=== PATIENT | female | born 1995 | race Caucasian/White ===

== ENCOUNTER 2017-08-07 11:03 | Inpatient (IN) ==
[2017-08-07 11:50] LABS: Amphetamine Screen,Urine Negative ng/mL (Cutoff=1000); Barbiturate Screen,Urine Negative ng/mL (Cutoff=200); Benzodiazepines Screen,Urine Negative ng/mL (Cutoff=200); Cannabinoid Screen,Urine Negative ng/mL (Cutoff = 50); Cocaine Screen,Urine Negative ng/mL (Cutoff= 300); Opiate Screen,Urine Negative ng/mL (Cutoff=300); Phencyclidine Screen,Urine Negative ng/mL (Cutoff=25)
[2017-08-07] MEDS ORDERED: Famotidine 20 MG/2 ML VIAL IVP PRN (11:54)
[2017-08-07] MEDS ORDERED: Ondansetron 4 MG/2 ML VIAL IVP PRN (11:54)
[2017-08-07] MEDS ORDERED: Metoclopramide 10 MG/2 ML VIAL IVP PRN (11:54)
[2017-08-07] MEDS ORDERED: Naloxone 0.4 MG/ML INJ IVP PRN (11:54)
--- NOTE | 2017-08-07 11:58 | OB/GYN History & Physical ---
Date of Encounter: 08/07/17 Time of Encounter: 11:52 Assessment and Plan (1) Pre-eclampsia, severe, antepartum Current visit: Yes Status: Acute Admit to labor and delivery for induction of labor secondary to Pre-eclampsia with severe features due to severe range BP's since arrival. Labetalol and hydralazine to control BP. Magnesium Sulfate infusion Seizure precautions Nubain prn for pain, epidural as desired TOCO, EFM Cervical medina, pitocin if needed for induction Anticipate (2) 38 weeks gestation of Current visit: No Status: Acute at 38 2/7 weeks gestation here for PIH eval; BP 162/104, 173/104 Pt gets care with Midwives in [place], was seeing Dr. Pereira for HTN. Has been on labetalol 100mg BID. History of Present Illness Chief complaint: PIH eval HPI: Ms. Aguilar is a 21 year old female at 38 2/7 weeks gestation who presents to labor and delivery for PIH evaluation. She has received the majority of her care through Midwives in [place]. She was evaluated at [address] Pereira for concerns with hypertension. She was evaluated again on 07/31 with SBP of 148. She has been on labetalol 100mg BID. Today she was evaluated and found to have BP of 148/94. She was sent over for PIH evaluation. She has some mild nausea. She reports positive movement. She is not feeling any contractions currently. Denies QUINN, visual changes, dizziness, cp, sob, abd pain , dysuria, numbness/tingling of extremities, weakness, vaginal loss of fluid, vaginal bleeding. Blood Type O+ GBS - Hep B non-reactive Rubella immune Past Med Surg Social Fam HX - Past Medical History Medical history: hypertension Psychiatric history: no psych history - Past Surgical History Surgical History: other - Social History Smoking Status: Never smoker Smokeless Tobacco Status: No Alcohol use: none Drug use: none Obstetrical History - Pregnancies : 1 Para: 0 Term: 0 : 0 Ab's: 0 Livin Medications and Allergies 3 Allergy/AdvReac Type Severity Reaction Status Date / Time No Known Allergies Allergy Verified 03/17/15 11:48 Review of System OB All systems PM: reviewed and no additional remarkable complaints except as stated Exam - Constitutional Constitutional: well developed, well nourished, no acute distress, average body habitus - HEENT HEENT: EOMI, PERRL, Normocephaly, Mucus Membranes Moist - Neck Neck exam: normal inspection, supple, trachea midline - Lungs Respiratory exam: CTAB - Cardiovascular Cardiovascular exam: +S1, +S2 - Abdomen Abdomen: Present: bowel sounds normal, gravid, non tender - Extremities Extremities exam: normal capillary refill, normal inspection, warm, radial pulses palpable and symmetrical Deep Tendon Reflex Grade: 2+ Normal - Cervix Dilation: 1 (1.5) Effacement: 70 Station: -2 - Uterus Uterus exam: Present: normal size, normal contour Results Result Diagrams: 08/07/17 12:23 08/07/17 12:23 All other labs normal. - VTE Reasons for not Prescribing Prophylaxis: Treatment not Indicated - Low risk for VTE
[2017-08-07] MEDS ORDERED: Ringers Solution, Lactated 1,000 ML IVC SCH (12:00)
[2017-08-07] MEDS ORDERED: *HR* Labetalol 20 MG/4 ML SYRINGE IVP ONE ×2 (12:27→15:42)
[2017-08-07 13:03] LABS: Basophils % 0.3 %; Eosinophils # 0.2 K/mcL (0.0-0.6); Hematocrit 39.9 % (35.3-44.9); Hemoglobin 13.4 g/dL (11.5-15.4); Mean Corpuscular HGB Conc 33.6 g/dL (31.6-35.5); Mean Corpuscular Hemoglobin 29.1 pg (28.0-33.3); Mean Corpuscular Volume 86.7 fL (83.0-100.0); Mean Platelet Volume 12.8 fL (9.4-12.4); Monocytes # 0.8 K/mcL (0.0-1.3); Monocytes % 8.4 %; Neutrophils # 6.3 K/mcL (1.6-8.9); Platelet Count 204 K/mcL (140-400); Red Cell Distribution Width 12.8 % (11.5-14.5); Segmented Neutrophils % 67.3 %
[2017-08-07 13:11] LABS: Alanine Aminotransferase 12 Units/L (7-52); Aspartate Amino Transferase 16 Units/L (13-39); BUN/Creatinine Ratio 13 (6-26); Blood Urea Nitrogen 10 mg/dL (6-20); Lactate Dehydrogenase 159 Units/L (140-271); Uric Acid 6.4 mg/dL (2.3-7.6); eGFR For African Americans > 60 (> 60); eGFR For Non-African Americans > 60 (> 60)
[2017-08-07] MEDS ORDERED: *HR* Labetalol 20 MG/4 ML SYRINGE IVP STA (13:14)
[2017-08-07 13:31] LABS: Protein/Creatinine Ratio,Urine 0.29 mg/mg (0.00-0.20)
[2017-08-07] MEDS: Magnesium Sulfate 20 gm/500mL 20 GM/500 ML IV.SOLN IVC SCH ×2 (13:41→23:28)
--- NOTE | 2017-08-07 14:30 | OB Labor Progress Note ---
Date of Encounter: 08/07/17 Time of Encounter: 14:10 Labor Progress Note - Subjective Subjective: Pt denies complaints - Cervix Cervix: 1.5/70/-2 - Heart Tones Heart Tones: Category I - Interventions Interventions: Hummel placed in cervix using sterile technique. Balloon inflated with 60ml sterile water. Pt tolerated well. - Plan Plan: Continue to monitor FHT and BP. Continue magnesium infusion.
[2017-08-07] MEDS ORDERED: Calcium Gluconate 1,000 MG/10 ML VIAL IVPB ONE (15:27)
--- NOTE | 2017-08-07 15:48 | Event Note ---
Date of Encounter: 08/07/17 Time of Encounter: 15:45 BP now again severe range despite labetalol [address]. Per Dr[address] Bhagat and ACOG committee opinion [id number] will now give 80mg Labetalol and then if still severe will give hydralazine. Pt is on magnesium sulfate 2 grams per hour.
[2017-08-07] MEDS ORDERED: Oxytocin 20 units/ LR 1000 mL 20 UNIT/1,000 ML BAG IVC SCH (18:30)
--- NOTE | 2017-08-07 21:51 | OB Labor Progress Note ---
Date of Encounter: 08/07/17 Time of Encounter: 21:50 Labor Progress Note - Subjective Subjective: Pt denies any complaints. - Vital Signs Vital Signs: BP mild range - Heart Tones Heart Tones: Category I, moderate variability, no declerations. - Wilbur Wilbur: irregular - Plan Plan: COntinue to monitor and titrate pitocin. Maximum of 8mu's/min on pitocin until medina out. Continue magnesium and careful BP monitoring.
--- NOTE | 2017-08-07 23:47 | OB Labor Progress Note ---
Date of Encounter: 08/07/17 Time of Encounter: 23:45 Labor Progress Note - Subjective Subjective: Pt denies complaints at this time. - Cervix Cervix: 6/80/-1 - Heart Tones Heart Tones: periods of minimal variability - [place]: 1.5-2 minutes - Interventions Interventions: AROM for large amount clear fluid. IUPC and FSE placed. - Plan Plan: Continue to monitor. Anticipate .
--- NOTE | 2017-08-08 00:50 | OB Labor Progress Note ---
Date of Encounter: 08/08/17 Time of Encounter: 00:48 Labor Progress Note - Subjective Subjective: Called to evaluate FHR tracing. - Heart Tones Heart Tones: FHR baseline 118 with variability currently at 10 beats per minute (moderate). Prior had minimal variability that was likely due to sleep cycle and/or effect of the Magnesium Sulfate. Her blood pressure at this time is under good control. - [place]: q 2 minutes without decel presently - Interventions Interventions: none - Plan Plan: Continue pitocin induction for superimposed pre-elampsia with severe features.
--- NOTE | 2017-08-08 04:18 | OB Labor Progress Note ---
Date of Encounter: 08/08/17 Time of Encounter: 04:17 Labor Progress Note - Vital Signs Vital Signs: 127/69 - Heart Tones Heart Tones: baseline 117 with moderate variability. Still having periods of minimal variability without decels. - [place]: q 2-3 minutes; pitocin currently at 2 munits/min - Interventions Interventions: Continue pitocin induction. Periods of decreased variability are likely due to the Magnesium and/or sleep cycle
[2017-08-08] MEDS: *HR* Nalbuphine 20 MG/ML AMPUL IVP PRN ×2 (07:21→15:53)
--- NOTE | 2017-08-08 10:03 | Anesthesia Evaluation PreOp ---
Date of Encounter: 08/08/17 Time of Encounter: 09:54 - Past History Planned Operation: vaginal del, G1 pre-eclampsia medina induction Cardiac History: HTN (HTN started wk 29 been tx with labetolol BID. BP 170/100' s started on MAG infusion, with labetolol and hydralzine) Pulmonary History: Denies Any Significant HX CONTAMINATED LAND CONSULTANT History: Denies Any Significant HX Other Medical History: Other (obesity) Anesthesia History: Past Anesthesia (no previous anesthesia, denies any family HX.) Alcohol Use: none Drug use: none Medications and Allergies Labetalol [Trandate] 100 mg PO BID 08/07/17 [History] 3 Allergy/AdvReac Type Severity Reaction Status Date / Time No Known Allergies Allergy Verified 08/07/17 20:28 Anesthesia Results - Labs 08/07/17 12:23 08/07/17 12:23 Anesthesia Exam - HEENT Pupil (Motor): Pupils equal Mallampati: II Teeth: Normal Oral Opening: Greater than 3 - CONTAMINATED LAND CONSULTANT LOC: Oriented CONTAMINATED LAND CONSULTANT Motor: Normal RUE, Normal LUE, Normal RLE, Normal LLE, Normal Face CONTAMINATED LAND CONSULTANT Sensory: Normal: RUE, LUE, RLE, LLE, Face - Cardiac Rhythm: Regular Murmur: None - Pulmonary Breath Sounds: bilateral Clear Respiratory Effort: Symmetrical Anesthesia Assess/Plan ASA Score: 2 Modified Apple Scale for Level of Consciousness: Cooperative, oriented, and tranquil Anesthetic Plan: General, Regional (patient does not desire any regional at this time.) Monitoring Plan: Standard Monitors Recovery Plan: PACU
[2017-08-08] MEDS: Magnesium Sulfate 20 gm/500mL 20 GM/500 ML IV.SOLN IVC SCH ×2 (10:04→19:52)
--- NOTE | 2017-08-08 19:24 | OB/GYN Procedure Note ---
Delivery - Delivery Date: 08/08/17 Provider: Herve Khanna Intrapartum events: none Delivery induction: oxytocin, medina Delivery monitor: internal FHT, internal uterine Anesthesia: local Estimated Blood Loss: 300 - Infant (s) A Infant Delivery Date: 08/08/17 Infant Delivery Time: 18:32 Presentation: vertex Position: ALEX Route of delivery: Gender: Male Viability: Viable Pounds: 5 Ounces: 7 at 1 minute: 8 at 5 mins: 9 Specimens collected: cord blood Placenta: spontaneous Cord: 3 umbilical vessels - Repair Episiotomy: none Laceration Description: Labial - Complications Delivery complications: none - Disposition Mom disposition: stable in LDR Tranquillity disposition: stable in LDR - Comments Comments: Pt s/p of liveborn male infant 5lbs 7oz with apgars 8 at 1 min and 9 at 5 min. EBL 300 cc. Spontaneous delivery of normal placenta with 3 VC. Bilateral labial superficial tears repaired with 3-0 vicryl under local anesthesia.
[2017-08-08] MEDS ORDERED: Measles/Mumps/Rubella Vacc 0.5 ML VIAL SQ PRN (19:55)
[2017-08-08] MEDS ORDERED: Acetaminophen 325 MG TABLET PO PRN (19:55)
[2017-08-08] MEDS ORDERED: Rho Immune Globulin 1,500 UNIT SYRINGE IM PRN (19:55)
[2017-08-08] MEDS ORDERED: Oxytocin 20 units/ LR 1000 mL 20 UNIT/1,000 ML BAG IVC SCH (19:55)
[2017-08-08] MEDS ORDERED: Ibuprofen 600 MG TABLET PO PRN (19:55)
[2017-08-09 04:42] LABS: Basophils % 0.2 %; Eosinophils % 0.1 %; Hematocrit 35.3 % (35.3-44.9); Hemoglobin 12.1 g/dL (11.5-15.4); Immature Granulocytes % 0.8 % (0-4); Lymphocytes # 1.6 K/mcL (0.6-4.6); Lymphocytes % 7.8 %; Mean Corpuscular HGB Conc 34.3 g/dL (31.6-35.5); Mean Corpuscular Hemoglobin 29.5 pg (28.0-33.3); Mean Corpuscular Volume 86.1 fL (83.0-100.0); Mean Platelet Volume 12.5 fL (9.4-12.4); Monocytes % 5.1 %; Neutrophils # 17.1 K/mcL (1.6-8.9); Platelet Count 200 K/mcL (140-400); Red Cell Distribution Width 12.9 % (11.5-14.5)
[2017-08-09] MEDS ORDERED: Magnesium Sulfate 20 gm/500mL 20 GM/500 ML IV.SOLN IVC SCH ×2 (05:45→10:45)
[2017-08-09] MEDS ORDERED: Calcium Gluconate 1,000 MG/10 ML VIAL IVPB ONE (07:57)
[2017-08-09] MEDS: Prenatal Vit/FA 1 EACH TABLET PO SCH (08:39)
--- NOTE | 2017-08-09 12:18 | OB/GYN Progress Note ---
Date of Encounter: 08/09/17 Time of Encounter: 12:16 - Assessment and Plan (1) Vaginal delivery Current Visit: Yes Status: Acute PPD 1 VSS Magnesium to continue through 1830 tonight Tolerating regular diet Voiding with urinary catheter Passing flatus but no BM yet Likely discharge tomorrow (2) Pre-eclampsia, severe, antepartum Current Visit: Yes Status: Acute Subjective - Subjective Patient reports: appetite normal, voiding normally, pain well controlled, no ambulating normally : doing well, nursing well Objective - Latest Vital Signs Latest vital signs: Vital Signs Temp Pulse Resp BP Pulse Ox 08/09/17 11:30 77 14 141/86 08/09/17 10:30 80 14 133/85 08/09/17 09:33 81 14 121/67 08/09/17 08:30 86 14 126/76 08/09/17 07:30 97.5 F L 90 14 136/78 98 08/09/17 06:30 70 16 123/77 08/09/17 05:30 70 16 140/92 08/09/17 04:30 70 14 140/92 08/09/17 03:30 97.9 F 76 16 141/93 97 08/09/17 02:30 74 18 137/90 08/09/17 01:30 68 16 131/97 08/09/17 00:30 78 14 139/94 08/08/17 23:30 97.9 F 82 16 139/92 96 08/08/17 22:30 97.6 F 80 16 139/84 98 08/08/17 21:30 97.4 F L 73 14 120/71 97 Intake and Output 08/08/17 08/09/17 08/09/17 23:59 07:59 15:59 Intake Total 0 / 0 120 / 120 Output Total 200 / 200 800 / 800 1200 / 1200 Balance -200 / -200 -800 / -800 -1080 / -1080 Intake: IV Fluids 0 / 0 Magnesium Sulfate Premix 20 gm/ 0 / 0 500mL 20 gm In 500 ml @ 2 GM/HR 50 mls/hr IVC .Q10H [facility] Rx#: [id number] Oral 120 / 120 Output: Urine 200 / 200 800 / 800 1200 / 1200 Other: Meal Breakfast Percent of Meal Consumed 100% Weight 88.178 kg - Exam Lungs: bilateral: normal Chest: Normal S1, Normal S2 Extremities: Present: normal Abdomen: Present: normal appearance, soft, gravid Uterus: Present: normal, firm Uterus Position: At Umbilicus, Midline Comments: BLE reflexes diminished - Labs Labs: Laboratory Results - last 24 hr 08/09/17 08/09/17 04:15 09:44 WBC 19.9 H D RBC 4.10 Hgb 12.1 Hct 35.3 MCV 86.1 MCH 29.5 MCHC 34.3 RDW 12.9 Plt Count 200 MPV 12.5 H Immature Gran % 0.8 Seg Neutrophils % 86.0 Lymphocytes % 7.8 Monocytes % 5.1 Eosinophils % 0.1 Basophils % 0.2 Neutrophils # 17.1 H Lymphocytes # 1.6 Monocytes # 1.0 Eosinophils # 0.0 Basophils # 0.0 Magnesium 7.1 H
[2017-08-09 12:34] LABS: Magnesium 6.3 mg/dL (1.6-2.6)
[2017-08-09] MEDS ORDERED: Ringers Solution, Lactated 1,000 ML ONE (12:49)
[2017-08-09 13:31] LABS: BUN/Creatinine Ratio 14 (6-26); Blood Urea Nitrogen 11 mg/dL (6-20); Carbon Dioxide 25 mEq/L (23-29); Chloride 104 mEq/L (98-107); Glucose 115 mg/dL (70-105); Sodium 134 mEq/L (136-145); eGFR For African Americans > 60 (> 60); eGFR For Non-African Americans > 60 (> 60)
[2017-08-09 13:32] LABS: Calcium 6.2 mg/dL (8.6-10.3); Osmolality,Calculated 278 (280-300)
[2017-08-10 07:32] LABS: Basophils % 0.3 %; Eosinophils # 0.2 K/mcL (0.0-0.6); Eosinophils % 1.5 %; Hematocrit 30.8 % (35.3-44.9); Lymphocytes # 2.8 K/mcL (0.6-4.6); Lymphocytes % 24.2 %; Mean Corpuscular HGB Conc 32.5 g/dL (31.6-35.5); Mean Corpuscular Hemoglobin 29.2 pg (28.0-33.3); Mean Corpuscular Volume 90.1 fL (83.0-100.0); Mean Platelet Volume 11.5 fL (9.4-12.4); Monocytes # 1.1 K/mcL (0.0-1.3); Monocytes % 9.1 %; Neutrophils # 7.4 K/mcL (1.6-8.9); Platelet Count 186 K/mcL (140-400); Red Blood Count 3.42 M/mcL (3.82-4.97); Red Cell Distribution Width 13.2 % (11.5-14.5); Segmented Neutrophils % 63.9 %
[2017-08-10 07:38] LABS: Alanine Aminotransferase 19 Units/L (7-52); Aspartate Amino Transferase 23 Units/L (13-39); BUN/Creatinine Ratio 13 (6-26); Blood Urea Nitrogen 9 mg/dL (6-20); Lactate Dehydrogenase 251 Units/L (140-271); Uric Acid 6.4 mg/dL (2.3-7.6); eGFR For African Americans > 60 (> 60); eGFR For Non-African Americans > 60 (> 60)
[2017-08-10] MEDS: Prenatal Vit/FA 1 EACH TABLET PO SCH (07:58)
[2017-08-10 08:40] VITALS: BP 128/83
--- NOTE | 2017-08-10 09:29 | Discharge Summary ---
Date of Encounter: 08/10/17 Time of Encounter: 09:20 - Discharge Diagnosis (1) Status post normal vaginal delivery Priority: Primary Status: Acute Comments: S/P Spontaneous vaginal delivery day #[address] Khanna VSDoron Pain well controlled Voiding without difficulty Passing gas but denies bowel movement Tolerating PO intake well Plan to discharge today with Post- precautions (2) Pre-eclampsia, severe, antepartum Priority: Primary Status: Acute Comments: Blood pressure stable DTRs 2+ bilaterally Denies headaches, vision disturbances, weakness Magnesium levels therapeutic Ambulating without difficulty Continue with labetalol 100 mg PO BID Plan for discharge home today with pre-eclampsia precautions - Discharge Medications Prescriptions: Ibuprofen [Motrin] 600 mg PO Q8HR PRN #30 tab PRN Reason: Mild Pain Breast Pump [BREAST PUMP] 1 each .ROUTE AD #1 each Docusate [Colace] 100 mg PO BID #30 capsule Ferrous Sulfate 325 mg PO DAILY #30 tablet Labetalol [Trandate] 100 mg PO BID #60 tablet Home Medications: Labetalol [Trandate] 100 mg PO BID 08/07/17 [History] Breast Pump [BREAST PUMP] 1 each .ROUTE AD #1 each 08/10/17 [Rx] Docusate [Colace] 100 mg PO BID #30 capsule 08/10/17 [Rx] Ferrous Sulfate 325 mg PO DAILY #30 tablet 08/10/17 [Rx] Ibuprofen [Motrin] 600 mg PO Q8HR PRN #30 tab 08/10/17 [Rx] Labetalol [Trandate] 100 mg PO BID #60 tablet 08/10/17 [Rx] Allergies/Adverse Reactions: 3 Allergy/AdvReac Type Severity Reaction Status Date / Time No Known Allergies Allergy Verified 08/07/17 20:28 Data Procedures and tests throughout hospitalization: Laboratory Tests 08/07/17 08/07/17 08/07/17 11:30 11:30 12:22 WBC RBC Hgb Hct MCV MCH MCHC RDW Plt Count MPV Immature Gran % Seg Neutrophils % Lymphocytes % Monocytes % Eosinophils % Basophils % Neutrophils # Lymphocytes # Monocytes # Eosinophils # Basophils # Sodium Potassium Chloride Carbon Dioxide BUN Creatinine Est GFR ( Amer) Est GFR (Non-Af Amer) BUN/Creatinine Ratio Glucose Calculated Osmolality Uric Acid Calcium Magnesium AST ALT Lactate Dehydrogenase Urine Creatinine 41 Protein/Creatinin Ratio 0.29 H Urine Total Protein 12 Urine Opiates Screen Negative Ur Barbiturates Screen Negative Ur Phencyclidine Scrn Negative Ur Amphetamines Screen Negative U Benzodiazepines Scrn Negative Urine Cocaine Screen Negative U Marijuana (THC) Screen Negative Hep Bs Antigen Nonreactive 08/07/17 08/07/17 08/09/17 12:23 12:23 04:15 WBC 9.4 19.9 H D RBC 4.60 4.10 Hgb 13.4 12.1 Hct 39.9 35.3 MCV 86.7 86.1 MCH 29.1 29.5 MCHC 33.6 34.3 RDW 12.8 12.9 Plt Count 204 200 MPV 12.8 H 12.5 H Immature Gran % 1.0 0.8 Seg Neutrophils % 67.3 86.0 Lymphocytes % 21.0 7.8 Monocytes % 8.4 5.1 Eosinophils % 2.0 0.1 Basophils % 0.3 0.2 Neutrophils # 6.3 17.1 H Lymphocytes # 2.0 1.6 Monocytes # 0.8 1.0 Eosinophils # 0.2 0.0 Basophils # 0.0 0.0 Sodium Potassium Chloride Carbon Dioxide BUN 10 Creatinine 0.75 Est GFR ( Amer) > 60 Est GFR (Non-Af Amer) > 60 BUN/Creatinine Ratio 13 Glucose Calculated Osmolality Uric Acid 6.4 Calcium Magnesium AST 16 ALT 12 Lactate Dehydrogenase 159 Urine Creatinine Protein/Creatinin Ratio Urine Total Protein Urine Opiates Screen Ur Barbiturates Screen Ur Phencyclidine Scrn Ur Amphetamines Screen U Benzodiazepines Scrn Urine Cocaine Screen U Marijuana (THC) Screen Hep Bs Antigen 08/09/17 08/09/17 08/10/17 09:44 12:00 07:09 WBC 11.6 H RBC 3.42 L Hgb 10.0 L D Hct 30.8 L MCV 90.1 MCH 29.2 MCHC 32.5 RDW 13.2 Plt Count 186 MPV 11.5 Immature Gran % 1.0 Seg Neutrophils % 63.9 Lymphocytes % 24.2 Monocytes % 9.1 Eosinophils % 1.5 Basophils % 0.3 Neutrophils # 7.4 Lymphocytes # 2.8 Monocytes # 1.1 Eosinophils # 0.2 Basophils # 0.0 Sodium 134 L Potassium 4.0 Chloride 104 Carbon Dioxide 25 BUN 11 Creatinine 0.79 Est GFR ( Amer) > 60 Est GFR (Non-Af Amer) > 60 BUN/Creatinine Ratio 14 Glucose 115 H Calculated Osmolality 278 L Uric Acid Calcium 6.2 L Magnesium 7.1 H 6.3 H AST ALT Lactate Dehydrogenase Urine Creatinine Protein/Creatinin Ratio Urine Total Protein Urine Opiates Screen Ur Barbiturates Screen Ur Phencyclidine Scrn Ur Amphetamines Screen U Benzodiazepines Scrn Urine Cocaine Screen U Marijuana (THC) Screen Hep Bs Antigen 08/10/17 07:09 WBC RBC Hgb Hct MCV MCH MCHC RDW Plt Count MPV Immature Gran % Seg Neutrophils % Lymphocytes % Monocytes % Eosinophils % Basophils % Neutrophils # Lymphocytes # Monocytes # Eosinophils # Basophils # Sodium Potassium Chloride Carbon Dioxide BUN 9 Creatinine 0.67 Est GFR ( Amer) > 60 Est GFR (Non-Af Amer) > 60 BUN/Creatinine Ratio 13 Glucose Calculated Osmolality Uric Acid 6.4 Calcium Magnesium AST 23 ALT 19 Lactate Dehydrogenase 251 Urine Creatinine Protein/Creatinin Ratio Urine Total Protein Urine Opiates Screen Ur Barbiturates Screen Ur Phencyclidine Scrn Ur Amphetamines Screen U Benzodiazepines Scrn Urine Cocaine Screen U Marijuana (THC) Screen Hep Bs Antigen Labs on day of discharge: Labs from last 24 hours 08/10/17 08/10/17 08/09/17 07:09 07:09 12:00 WBC 11.6 H RBC 3.42 L Hgb 10.0 L D Hct 30.8 L MCV 90.1 MCH 29.2 MCHC 32.5 RDW 13.2 Plt Count 186 MPV 11.5 Immature Gran % 1.0 Seg Neutrophils % 63.9 Lymphocytes % 24.2 Monocytes % 9.1 Eosinophils % 1.5 Basophils % 0.3 Neutrophils # 7.4 Lymphocytes # 2.8 Monocytes # 1.1 Eosinophils # 0.2 Basophils # 0.0 Sodium 134 L Potassium 4.0 Chloride 104 Carbon Dioxide 25 BUN 9 11 Creatinine 0.67 0.79 Est GFR ( Amer) > 60 > 60 Est GFR (Non-Af Amer) > 60 > 60 BUN/Creatinine Ratio 13 14 Glucose 115 H Calculated Osmolality 278 L Uric Acid 6.4 Calcium 6.2 L Magnesium 6.3 H AST 23 ALT 19 Lactate Dehydrogenase 251 08/09/17 09:44 WBC RBC Hgb Hct MCV MCH MCHC RDW Plt Count MPV Immature Gran % Seg Neutrophils % Lymphocytes % Monocytes % Eosinophils % Basophils % Neutrophils # Lymphocytes # Monocytes # Eosinophils # Basophils # Sodium Potassium Chloride Carbon Dioxide BUN Creatinine Est GFR ( Amer) Est GFR (Non-Af Amer) BUN/Creatinine Ratio Glucose Calculated Osmolality Uric Acid Calcium Magnesium 7.1 H AST ALT Lactate Dehydrogenase Date of admission: 08/07/17 11:03 Primary care physician: Kandace Ayala MD Consults: 08/08/17 19:55 Consult to Senior Sales Manager [CONS] Routine Comment: Vaginal delivery, consult needed Discharging clinician: Anastacio Croft Anticipated date of discharge: 08/10/17 - Patient Status Disposition: Home, Self-Care Condition: Good Functional capacity at discharge: independent ambulation Overall status at discharge: patient is back to baseline - Discharge Instructions Follow Up With: Kandace Ayala MD [Primary Care Provider] - - Diet and Activity Activity: return to work once cleared by your PCP/specialist, resume usual activities as tolerated Diet: regular diet Hospital Course Reason for admission: pre-eclampsia Delivery: Episiotomy: none Laceration: other (BL labial superficial tears) Other procedures: none complications: none Discharge diagnosis: IUP at term delivered baby: male Hospital course: - Delivery Date: 08/08/17 Provider: Herve Khanna Intrapartum events: none Delivery induction: oxytocin, medina Delivery monitor: internal FHT, internal uterine Anesthesia: local Estimated Blood Loss: 300 - (s) A Infant Delivery Date: 08/08/17 Delivery Time: 18:32 Presentation: vertex Position: ALEX Route of delivery: Gender: Male Viability: Viable Pounds: 5 Ounces: 7 at 1 minute: 8 at 5 mins: 9 Specimens collected: cord blood Placenta: spontaneous Cord: 3 umbilical vessels - Repair Episiotomy: none Laceration Description: Labial - Complications Delivery complications: none Stable in PP and appropriate for discharge Time Attestation: Total time spent providing and/or coordinating discharge services: Time Spent: Less than 30 minutes Exam - Constitutional Vitals: Temp Pulse Resp BP Pulse Ox 98.0 F 74 16 128/83 97 08/10/17 07:50 08/10/17 07:50 08/10/17 07:50 08/10/17 07:50 08/10/17 07:50 General appearance IM: A&O X 3, no acute distress, answers questions appropriately - Respiratory Respiratory exam: Present: CTAB. Absent: rales, respiratory distress, wheezes - Cardiovascular Cardiovascular exam IM: Present: RRR, +S1, +S2 - GI/Abdominal GI/Abdominal exam IM: hypoactive bowel sounds, no peritoneal signs - Uterine Tone: Firm Uterus Position: 1 Finger Below Umbilicus - Extremities Exam Extremities exam IM: Present: pedal edema (1+ bilaterally ), radial pulses palpable and symmetrical. Absent: calf tenderness - Neurological Exam Neurological exam: oriented X3, no focal deficits, strengths equal and symetr throughout - Psychiatric Additional comments: Patient's mood is good
== END 2017-08-10 11:55 | disposition home or self-care (01) | DRG 775 ==
LOC: 1NENULAB → OBSVTOIN 11:03 → 1NENUOBS 08-09 00:52
PROVIDERS: ADMIT Obstetrics & Gynecology; ATTEND Obstetrics & Gynecology